=== PATIENT | male | born 1995 | race Hispanic/Latino ===

== ENCOUNTER 2017-02-25 12:27 | Emergency (ER) | payer SELFPAY ==
[2017-02-25] MEDS ORDERED: Acetaminophen 500 MG TAB ONE (12:57)
[2017-02-25] MEDS ORDERED: Ondansetron ODT 4 MG TAB ONE ×2 (12:57→14:18)
== END 2017-02-25 14:50 | disposition home or self-care (01) ==
LOC: ERS 12:27
DX: J10.1 Influenza due to other identified influenza virus with other respiratory manifestations (principal)
CPT/HCPCS: 87804; 99283; Q0162